=== PATIENT | male | born 1950 ===

== ENCOUNTER 2018-06-13 09:10 | Day surgery (SDC) | payer OTHER ==
[2018-06-13] MEDS ORDERED: BACITRACIN ZINC 0.5 OZ OINTTUBE TP ONE (09:19)
[2018-06-13] MEDS ORDERED: BUPIVACAINE 0.25% 30 ML SDV ONE ×2 (09:19→09:36)
[2018-06-13] MEDS ORDERED: ceFAZolin 2 GM/DEXTROSE 100 ML IV ONE (09:23)
[2018-06-13] MEDS ORDERED: LR 1,000 ML IV ONE (09:23)
[2018-06-13] MEDS ORDERED: LIDOCAINE 1% 2 ML INJ ID PRN (09:23)
[2018-06-13] MEDS ORDERED: LIDOCAINE 1% 300 MG/30 ML SDV ONE (09:36)
[2018-06-13] MEDS ORDERED: EPINEPHrine 1 MG/ML INJ ONE (09:37)
--- NOTE | 2018-06-13 09:48 | PDHPUP ---
History & Physical Update H&P update statement: This history and physical update is based on an assessment of the patient which was completed after admission or registration (within 24 hours), but prior to the surgery/procedure. H&P update: H&P reviewed & patient examined, no change in patient's condition since H&P completed
--- NOTE | 2018-06-13 09:50 | PDANEPAE ---
ANE History of Present Illness Left inguinal hernia ANE Past Medical History - Cardiovascular History Hx Hypertension: No Hx Arrhythmias: No Hx Chest Pain: No Hx Coronary Artery / Peripheral Vascular Disease: No Hx CHF / Valvular Disease: No Hx Palpitations: No - Pulmonary History Hx COPD: No Hx Asthma/Reactive Airway Disease: No Hx Recent Upper Respiratory Infection: No Hx Oxygen in Use at Home: No Hx Sleep Apnea: Yes Sleep Apnea Screening Result - Last Documented: Negative - Neurologic History Hx Cerebrovascular Accident: No Hx Seizures: No Hx Dementia: No - Endocrine History Hx Diabetes: No - Renal History Hx Renal Disorders: No - Liver History Hx Hepatic Disorders: No - Neurological & Psychiatric Hx Hx Neurological and Psychiatric Disorders: No - Cancer History Hx Cancer: No - Congenital Disorder History Hx Congenital Disorders: No - GI History GERD: no Hx Gastrointestinal Disorders: No - Other Health History Other Health History: NEG - Chronic Pain History Chronic Pain: Yes (L KNEE) - Surgical History Prior Surgeries: R HERNIA REPAIR. BACK SURGERY LAMINECTOMY L5. VASECTOMY ANE Review of Systems Review of systems is: negative Review of Systems: - Exercise capacity Exercise capacity: >=4 METS METS (RN): 5 METS ANE Patient History - Allergies Allergies/Adverse Reactions: No Known Allergies Allergy (Unverified 06/10/18 18:56) - Home Medications Home Medications: Herbals/Supplements -Info Only 06/13/18 [Last Taken 06/12/18] - NPO status NPO Since - Liquids (Date): 06/13/18 NPO Since - Liquids (Time): 06:00 NPO Since - Solids (Date): 06/12/18 NPO Since - Solids (Time): 22:00 - Anes Hx Anes Hx: no prior problems - Smoking Hx Smoking Status: Never smoked Marijuana use: No ANE Labs/Vital Signs - Vital Signs Blood Pressure: 137/83 Heart Rate: 63 Respiratory Rate: 10 O2 Sat (%): 99 Height: 172.72 cm Weight: 69.4 kg ANE Physical Exam - Airway Neck exam: FROM Mallampati Score: Class 2 Mouth exam: normal dental/mouth exam Mouth image: 1 - chipped - Pulmonary Pulmonary: no respiratory distress - Cardiovascular Cardiovascular: regular rate and rhythym, no murmur, rub, or gallop - ASA Status ASA Status: I ANE Anesthesia Plan Anesthesia Plan: GA with mask, MAC (vs possible IV GA)
[2018-06-13] MEDS ORDERED: fentaNYL 100 MCG/2 ML INJ ONE (10:09)
[2018-06-13] MEDS ORDERED: PROPOFOL/EMULSION 500 MG/50 ML BOTTLE IV ONE (10:10)
[2018-06-13] MEDS ORDERED: NALOXONE HCL 0.4 MG/ML INJ IVP PRN (10:37)
[2018-06-13] MEDS ORDERED: LR 500 ML IV PRN (10:37)
[2018-06-13] MEDS ORDERED: fentaNYL 100 MCG/2 ML INJ IVP PRN (10:37)
[2018-06-13] MEDS ORDERED: ONDANSETRON 4 MG/2 ML VIAL IVP PRN (10:37)
[2018-06-13] MEDS ORDERED: HYDROmorphONE/DILAUDID 2 MG/ML INJ IVP PRN (10:37)
--- NOTE | 2018-06-13 11:25 | POSTANESTH ---
Post Anesthetic Evaluation Cardiovascular Status: Similar to Pre-Op Cond Respiratory Status: Similar to Pre-op Cond. Level of Consciousness/Mental Status: Alert and Oriented Pain Control: Adequate, Prn Tx Ordered Nausea/Vomiting Control: Adequate, Prn Tx Ordered Complications Possibly Related to Anesthesia: None Noted
--- NOTE | 2018-06-13 12:04 | POSTOPPROG ---
Post Op Note Date of Operation: 06/13/18 Surgeon: Michael Montoya (, FACS) Research And Development Researcher: DORYS Mckenzie-III Anesthesiologist: Stanton Rios MD Anesthesia: Other (Specify) (MAC) Pre-op Diagnosis: LIH Post-op Diagnosis: Direct LIH Procedure: open repair LIH Findings: direct inguinal hernia Inf/Abcess present in the surg proc area at time of surgery?: No EBL: Minimal
[2018-06-13] MEDS ORDERED: HYDROCODONE/APAP 5/325 TAB PO PRN (12:05)
[2018-06-13] MEDS ORDERED: ONDANSETRON DISINTEGRATING 4 MG TAB PO PRN (12:05)
[2018-06-13] MEDS ORDERED: SENNOSIDES/DOCUSATE SODIUM TAB PO SCH (12:15)
--- NOTE | 2018-06-13 14:49 | GOP ---
[f rep st] OPERATIVE REPORT DATE OF OPERATION: 06/13/2018 SURGEON: Michael Montoya MD, FACS [employer] TECHNICIAN: ANTONIO Mckenzie. ANESTHESIA: Monitored anesthesia care and regional block. ANESTHESIOLOGIST: Filipe Rios MD. PREOPERATIVE DIAGNOSIS: Left inguinal hernia. POSTOPERATIVE DIAGNOSIS: Direct left inguinal hernia. PROCEDURE PERFORMED: Open repair of left inguinal hernia. FINDINGS: Direct inguinal hernia without incarceration. No evidence of indirect hernia. ESTIMATED BLOOD LOSS: 5 mL. DESCRIPTION OF PROCEDURE: After informed consent was obtained, the patient was brought to the operating room and placed supine. Left groin was prepped and draped in the usual fashion. Deep sedation was administered and the patient was monitored throughout the procedure by Dr. Rios. After the left groin was prepped and draped in the usual fashion, a time-out was performed prior to proceeding. A regional field block was then established with 0.25% Marcaine infiltrating the external oblique fascia slightly medial and inferior to the anterior-superior iliac crest. The planned incision site was infiltrated as well. An oblique incision was made over the inguinal canal and carried through the skin, subcutaneous tissues and Son fascia. External oblique fascia was infiltrated with 0.25% Marcaine, opened in the direction of its fibers through the external ring. The cord structures were mobilized from the inguinal floor and from the underlying direct hernia sac. These were encircled with a Muse drain and retracted inferiorly. The direct hernial defect was rather large, extending from the medial inguinal floor all the way to the epigastric vessels. The transversalis fascia was closed with continuous running 3-0 Vicryl suture to allow reduction of the hernia while we accomplished the reconstruction of the floor. There was no indirect sac noted. A piece of polypropylene mesh was cut to an appropriate shape and sutured to the inguinal ligament starting at the pubic tubercle medially and extending to the internal ring laterally with interrupted 0 Nurolon sutures. Here, the mesh was split in a horizontal fashion around the cord creating a keyhole defect. It was sutured to itself and the inguinal ligament again using 0 Nurolon sutures. These were also used to then attach the mesh to the internal oblique fascia medially and superiorly. Laterally, the tapered portion of mesh was tucked between the external oblique and internal oblique muscles. Upon completion, the repair was intact without undue tension. The cord structures were returned to their anatomic position. The ileal inguinal nerve was observed to course through the inguinal floor cephalad to the cord and was left under the mesh undisturbed. The external oblique fascia was closed with continuous running 3-0 Monocryl suture. Subcutaneous tissues were closed with 3 -0 Monocryl suture. Skin was closed with 4-0 Monocryl suture in a subcuticular fashion. Topical Dermabond was applied. The patient was returned extubated to the recovery room in satisfactory condition. Needle, sponge and instrument counts were correct. COMPLICATIONS: None. /[id number]/MODL MTDD
[2018-06-13 15:00] VITALS: BP 118/74
== END 2018-06-13 14:55 | disposition home or self-care (01) ==
LOC: FSGY 09:10
PROVIDERS: ATTEND Surgery
PROC: 0YU60JZ Supplement Left Inguinal Region with Synthetic Substitute, Open Approach (ICD-10-PCS; principal; 2018-06-13 10:30)
DX: K40.90 Unilateral inguinal hernia, without obstruction or gangrene, not specified as recurrent (principal)
CPT/HCPCS: C1781; J0171; J0690; J2704; J3010